=== PATIENT | female | born 1975 | race African-American/Black ===

== ENCOUNTER 2022-09-02 07:46 | Emergency (ER) | payer SELFPAY ==
[2022-09-02 08:04] LABS: BILIRUBIN,URINE NEGATIVE (NEGATIVE); COLOR,URINE YELLOW; GLUCOSE, URINE (UA) NEGATIVE (NEGATIVE); KETONES,URINE NEGATIVE (NEGATIVE); LEUKOCYTE ESTERASE ,URINE TRACE (NEGATIVE); NITRITE,URINE NEGATIVE (NEGATIVE); PH,URINE 5.5 (5-9); PROTEIN,URINE 1+ (NEGATIVE)
[2022-09-02 08:08] LABS: BACTERIA,URINE LARGE /HPF; CLARITY,URINE SLIGHTLY CLOUDY; SQUAMOUS EPITHELIAL CELL,UR 25-50 /HPF
[2022-09-02] MEDS ORDERED: NS IV 1000 ML 1,000 ML IV STA (08:09)
[2022-09-02] MEDS ORDERED: ONDANSETRON 4 MG/2 ML (SDV) Z0FRAN IVP STA (08:09)
[2022-09-02] MEDS ORDERED: KETOROLAC 15 MG/ML VIAL IVP STA (08:09)
[2022-09-02 08:15] LABS: BASOPHILS % (AUTO) 0 % (0-10); EOSINOPHILS # (AUTO) 0.1 10^3/uL (0.0-0.3); EOSINOPHILS % (AUTO) 1 % (0-10); HEMATOCRIT 36 % (35-52); HEMOGLOBIN 11.5 g/dL (11.5-16.0); LYMPHOCYTES # (AUTO) 3.1 10^3/uL (1.0-4.0); LYMPHOCYTES % (AUTO) 28 % (12-44); MEAN CORPUSCULAR HEMOGLOBIN 26 pg (25-34); MEAN CORPUSCULAR HGB CONC 32 g/dL (32-36); MEAN CORPUSCULAR VOLUME 83 fL (80-99); MEAN PLATELET VOLUME 8.6 fL (9.0-12.2); MONOCYTES # (AUTO) 0.7 10^3/uL (0.0-1.0); MONOCYTES % (AUTO) 6 % (0-12); NEUTROPHILS # (AUTO) 7.3 10^3/uL (1.8-7.8); NEUTROPHILS % (AUTO) 65 % (42-75); PLATELET COUNT 432 10^3/uL (130-400); WHITE BLOOD COUNT 11.2 10^3/uL (4.3-11.0)
[2022-09-02] MEDS ORDERED: IOHEXOL 350 MG/ML 100 ML (OMNIPAQUE 350) VIAL IV ONE (08:15)
[2022-09-02] MEDS ORDERED: NS 100 ML (IVPB) BAG IV ONE (08:15)
[2022-09-02] MEDS ORDERED: HOLD METFORMIN - RECEIVED CONTRAST 20 ML VIAL IV SCH (08:15)
--- NOTE | 2022-09-02 08:22 | ED GU-Female ---
General Chief Complaint: - Reproductive Stated Complaint: SUPRAPUBIC PAIN Source: patient History of Present Illness Date Seen by Provider: Sep 02, 2022 Time Seen by Provider: 07:52 Initial Comments 46-year-old female presenting with complaints of severe menstrual cramping pain. She states that she started her period and the pain on Saturday the . She had been having irregular menstrual cycles over the last year and thought she might be going into menopause however the last 2 months have been on time. She felt like the pain was more severe than her usual menstrual cramps and seems to be going into her back and her tailbone. She denies pain with urination. 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 She did have some relief of pain yesterday with Acetaminophen and took a nap, but then when she woke up she was having nausea and vomiting and felt the pain was worse. She denies pain or burning with urination. She has had an ablation and tubal ligation in the past. She denies other surgeries on her abdomen. She has history of rheumatoid arthritis that she takes methotrexate for and she has high blood pressure but is not following with any provider currently so she is not taking any medication for that. She has not taken anything today for pain. She has not had any vomiting today but states that she threw up 4 times yesterday. She denies any diarrhea or change in her bowels. 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 and she usually goes to [facility] for medical care but has not established with anyone since they moved here to [place]. Timing/Duration: getting worse (Over the last 3 days) Severity/Quality: severe, cramping, sharp Location: RLQ, LLQ, suprapubic Radiation: back (Low back and her tailbone) Activities at Onset: none Prior Genitourinary Problems: similar symptoms (Severe menstrual cramps and pain in the past but feels that this is worse) Modifying Factors: Worsens With Palpation Associated Symptoms: No diaphoresis, No dysuria, No fever/chills, No loss of bladder control; lower back pain; No lumps, No mass; nausea/vomiting; No nocturia, No polyuria, No swelling, No syncope, No urinary frequency Allergies and Home Medications Allergies Coded Allergies: No Known Drug Allergies (Unverified , 09/02/22) Patient Home Medication List Home Medication List Reviewed: Yes Naproxen (Naprosyn) 500 Mg Tablet, 500 MG PO BID Prescribed by: JESSE RODAS on 09/02/22908 Ondansetron (Ondansetron Odt) 4 Mg Tab.rapdis, 4 MG PO Q6H PRN for NAUSEA/VOMITING Prescribed by: JESSE BENJAMINYART on 09/02/22 09 Review of Systems Review of Systems Constitutional: No chills; dizziness; No fever EENTM: no symptoms reported Respiratory: no symptoms reported Cardiovascular: no symptoms reported Gastrointestinal: see HPI Genitourinary: see HPI Musculoskeletal: see HPI Skin: No change in color, No rash Psychiatric/Neurological: No Symptoms Reported Past [id number]-Xztiwt-Sksluo Hx Patient Social History Tobacco Use?: No Substance use?: No Alcohol Use?: Yes Alcohol Frequency: Once in a while Past Medical History Surgery/Hospitalization HX: Rheumatoid Arthritis, Uterine Ablation for heavy menstruation, Tubal Ligation, Hypertension Surgeries: Yes Tubal Ligation Respiratory: No Cardiac: Yes Hypertension Neurological: No Reproductive Disorders: Yes 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 oz. kg; BMI Method: General Appearance: WD/WN, mild distress (appears to be in pain at times during the exam and interview) HEENT: PERRL/EOMI, pharynx normal Neck: non-tender, full range of motion, supple, normal inspection Cardiovascular: normal peripheral pulses, regular rate, rhythm Respiratory: chest non-tender, lungs clear, normal breath sounds Gastrointestinal: normal bowel sounds, soft, no pulsatile mass; No distended; guarding; No rebound; tenderness (suprapubic and RLQ) Rectal: deferred Back: no CVA tenderness, no vertebral tenderness, muscle spasm (with pain to low lumbar back) Extremities: normal range of motion, non-tender, no calf tenderness, normal capillary refill Neurologic/Psychiatric: alert, oriented x 3 Skin: normal color, warm/dry Progress/Results/Core Measures Suspected Sepsis SIRS Temperature: Pulse: Respiratory Rate: Laboratory Tests 09/02/22 08:10: White Blood Count 11.2H Blood Pressure / Mean: Laboratory Tests 09/02/22 08:10: Creatinine 0.78, Platelet Count 432H, Total Bilirubin 0.4 Results/Orders Lab Results Laboratory Tests Test 09/02/22 07:50 09/02/22 08:10 Range/Units Urine Color YELLOW Urine Clarity SLIGHTLY CLOUDY Urine pH 5.5 5-9 Urine Specific [place] 1.025 H 1.016-1.022 Urine Protein 1+ H NEGATIVE Urine Glucose (UA) NEGATIVE NEGATIVE Urine Ketones NEGATIVE NEGATIVE Urine Nitrite NEGATIVE NEGATIVE Urine Bilirubin NEGATIVE NEGATIVE Urine Urobilinogen 0.2 < = 1.0 MG/DL Urine Leukocyte Esterase TRACE H NEGATIVE Urine RBC (Auto) 3+ H NEGATIVE Urine RBC 10-25 H /HPF Urine WBC 10-25 H /HPF Urine Squamous Epithelial Cells 25-50 H /HPF Urine Crystals NONE /LPF Urine Bacteria LARGE H /HPF Urine Casts NONE /LPF Urine Mucus LARGE H /LPF Urine Culture Indicated NO White Blood Count 11.2 H 4.3-11.0 10^3/uL Red Blood Count 4.37 3.80-5.11 10^6/uL Hemoglobin 11.5 11.5-16.0 g/dL Hematocrit 36 35-52 % Mean Corpuscular Volume 83 80-99 fL Mean Corpuscular Hemoglobin 26 25-34 pg Mean Corpuscular Hemoglobin Concent 32 32-36 g/dL Red Cell Distribution Width 15.8 H 10.0-14.5 % Platelet Count 432 H 130-400 10^3/uL Mean Platelet Volume 8.6 L 9.0-12.2 fL Immature Granulocyte % (Auto) 0 % Neutrophils (%) (Auto) 65 42-75 % Lymphocytes (%) (Auto) 28 12-44 % Monocytes (%) (Auto) 6 0-12 % Eosinophils (%) (Auto) 1 0-10 % Basophils (%) (Auto) 0 0-10 % Neutrophils # (Auto) 7.3 1.8-7.8 10^3/uL Lymphocytes # (Auto) 3.1 1.0-4.0 10^3/uL Monocytes # (Auto) 0.7 0.0-1.0 10^3/uL Eosinophils # (Auto) 0.1 0.0-0.3 10^3/uL Basophils # (Auto) 0.0 0.0-0.1 10^3/uL Immature Granulocyte # (Auto) 0.0 0.0-0.1 10^3/uL Sodium Level 141 135-145 MMOL/L Potassium Level 3.9 3.6-5.0 MMOL/L Chloride Level 107 98-107 MMOL/L Carbon Dioxide Level 24 21-32 MMOL/L Anion Gap 10 5-14 MMOL/L Blood Urea Nitrogen 4 L 7-18 MG/DL Creatinine 0.78 0.60-1.30 MG/DL Estimat Glomerular Filtration Rate 95 BUN/Creatinine Ratio 5 Glucose Level 110 H 70-105 MG/DL Calcium Level 9.5 8.5-10.1 MG/DL Corrected Calcium 9.4 8.5-10.1 MG/DL Total Bilirubin 0.4 0.1-1.0 MG/DL Aspartate Amino Transf (AST/SGOT) 15 5-34 U/L Alanine Aminotransferase (ALT/SGPT) 5 0-55 U/L Alkaline Phosphatase 70 40-136 U/L Total Protein 7.4 6.4-8.2 GM/DL Albumin 4.1 3.2-4.5 GM/DL Lipase 19 8-78 U/L My Orders Orders - JESSE RODAS MD Ua Culture If Indicated (09/02/22 07:52) Urine Bedside (09/02/22 07:52) Comprehensive Metabolic Panel (09/02/22 08:09) Lipase (09/02/22 08:09) Ed Iv/Invasive Line Start (09/02/22 08:09) Cbc With Automated Diff (09/02/22 08:09) Ct Abdomen/Pelvis W (09/02/22 08:09) Ns Iv 1000 Ml (Sodium Chloride 0.9%) (09/02/22 08:09) Ondansetron Injection (Zofran Injectio (09/02/22 08:09) Ketorolac Injection (Toradol Injection) (09/02/22 08:09) Iohexol Injection (Omnipaque 350 Mg/Ml 1 (09/02/22 08:15) Received Contrast (Hold Metformin- Contr (09/02/22 08:15) Ns (Ivpb) (Sodium Chloride 0.9% Ivpb Bag (09/02/22 08:15) Medications Given in ED Current Medications Medications Dose Ordered Sig/Noam Route Start Time Stop Time Status Last Admin Dose Admin Iohexol 100 ml ONCE ONCE IV 09/02/22 08:15 09/02/22 08:16 DC 09/02/22 08:31 80 ML Sodium Chloride 100 ml ONCE ONCE IV 09/02/22 08:15 09/02/22 08:16 DC 09/02/22 08:31 80 ML Vital Signs/I&O 09/02/22 09/02/22 07:50 09:13 Temp 37.2 37.2 Pulse 86 86 Resp 16 16 B/P (MAP) 169/92 (117) 169/92 Pulse Ox 100 100 O2 Delivery Room Air Room Air Capillary Refill : Progress Note #1: Progress Note Potential diagnosis of ovarian cyst, uterine fibroids, colitis, diverticulitis, pyelonephritis, cystitis, dysmenorrhea, appendicitis, kidney stone. Obtain urinalysis to evaluate for signs of infection and bedside urine . Establish peripheral IV access and send labs for complete blood count, comprehensive metabolic profile, lipase. CT scan of the abdomen and pelvis with IV contrast to evaluate for intra-abdominal and pelvic pathology that might be contributing to her complaints of severe pain. Normal saline 1 L IV fluid bolus for hydration, ketorolac 15 mg IV for pain and inflammation, ondansetron 4 mg IV for nausea and vomiting. Progress Note #2: Time: 08:36 Progress Note Urinalysis showed elevated specific gravity 1.025. She did have 3+ blood and 25-50 epithelial cells but did not have leukocyte esterase, nitrates or indications of UTI. Her complete blood count is 11.2 for her white blood cells and 11.3 for the hemoglobin. Platelets of 432. On her comprehensive metabolic profile she did not have any acute significant electrolyte abnormality. Her lipase was normal at 19. Awaiting results of CT scan of the abdomen pelvis with IV contrast. On my personal review and interpretation of the CT scan of the abdomen and pelvis with IV contrast I did not appreciate any acute bowel obstruction, mass, appendicitis, fluid collection to indicate a reason for her pain and symptoms. Progress Note #3: Time: 08:54 Progress Note I have reviewed the radiologist report of the CT scan of the abdomen and pelvis with IV contrast. They did not appreciate any acute pathology to account for her low back and pelvic pain. Will review with the patient the CT scan findings. She did report that her pain was down to 5 out of 10 when I checked with her initially and reviewed her basic labs. We will discuss option of ordering an outpatient ultrasound to evaluate ovaries and uterus in further detail. Can continue NSAIDs for her complaints of pelvic and low back pain. Offer Zofran for nausea and vomiting. Encouraged follow-up with gynecology for irregular menstrual cycle and increased painful bleeding. Diagnostic Imaging Diagonstic Imaging: CT Plain Films/CT/US/NM/MRI: abdomen, pelvis Comments NAME: [facility] REC#: [id number] PT STATUS: REG ER : 1975 PHYSICIAN: JESSE RODAS MD ADMIT DATE: 09/02/22/ER FS Draft Date of Exam:09/02/22 CT ABDOMEN/PELVIS W EXAMINATION: CT abdomen and pelvis with intravenous contrast. TECHNIQUE: Multiple contiguous axial images were obtained through the abdomen and pelvis after the uneventful administration of intravenous contrast. All CT scans use one or more of the following dose optimizing techniques: automated exposure control, MA and/or KvP adjustment based on patient size and exam type or iterative reconstruction. HISTORY: Abdominal pain. Back pain. Nausea and vomiting. COMPARISON: None available. FINDINGS: The heart is unremarkable. The included lung bases are clear. The liver, spleen, pancreas, adrenal glands, and kidneys have a normal appearance. There is no pathologically enlarged mesenteric or retroperitoneal adenopathy. The bowel loops are nondilated. The appendix is visualized in the right lower quadrant and has a normal appearance. There is no free air. No acute osseous abnormalities. Ureters and bladder are grossly normal. A small amount of physiologic free fluid is seen in the pelvis. There is no free air, loculated collection, or adenopathy in the pelvis. IMPRESSION: 1. No acute abnormalities in the abdomen and pelvis. No bowel obstruction, free fluid, or free air. 2. Small amount of physiologic free fluid in the pelvis. Dictated on workstation # [id number] Dict: 09/02/22 0848 Trans: 09/02/22 0851 [facility] [id number] Interpreted by: CANDICE CRUZ DO Electronically signed by: Reviewed: Reviewed by Me Departure Impression Primary Impression: Acute pelvic pain, female Additional Impression: Menorrhagia with irregular cycle Disposition: 01 HOME, SELF-CARE Condition: Stable Departure-Patient Inst. Decision time for Depature: 09:07 Referrals: MIGUEL FRANZ,LOCAL PHYSICIAN (PCP) [place] Care Physician [facility] [place] [facility] [place] Instructions: Absent or irregular periods, Painful periods, Pelvic Pain ED Add. Discharge Instructions: Continue to stay well-hydrated and drink plenty of fluids. You may continue to take acetaminophen for pain as well as you can take naproxen or Aleve. 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 You could follow-up and establish care with [facility] for local drier take off tender, Dr. FRANZ. To get an outpatient ultrasound you may call [facility] at [phone] after 7 AM tomorrow morning about trying to schedule the ultrasound with their wellfield technician. Let them know that you have an outpatient order from the emergency department here in [place]. Alternatively you could call scheduling for radiology in [place] through [employer] after 7 am tomorrow morning and let them know you have an outpatient ultrasound order to schedule for Saturday. Call [phone] if you want to try and schedule to have ultrasound done in [place] at [address]. If your symptoms are continuing to worsen or you have more concerns you could return to the ER or get in with provider at [facility] or [facility] of your choice. All discharge instructions reviewed with patient and/or family. Voiced understanding. Scripts Ondansetron (Ondansetron Odt) 4 Mg Tab.rapdis 4 MG PO Q6H PRN for NAUSEA/VOMITING for 2 Days, #8 TAB 0 Refills Prov: JESSE RODAS MD 09/02/22 Naproxen (Naprosyn) 500 Mg Tablet 500 MG PO BID for Pelvic Pain for 5 Days, #10 TAB 0 Refills Prov: JESSE RODAS MD 09/02/22 JESSE RODAS MD Sep 02, 2022 08:22
[2022-09-02 08:35] LABS: ALBUMIN 4.1 GM/DL (3.2-4.5); BILIRUBIN,TOTAL 0.4 MG/DL (0.1-1.0); CALCIUM 9.5 MG/DL (8.5-10.1); CREATININE SERUM 0.78 MG/DL (0.60-1.30); POTASSIUM 3.9 MMOL/L (3.6-5.0); TOTAL PROTEIN 7.4 GM/DL (6.4-8.2)
--- NOTE | 2022-09-02 08:51 | Diagnostic Imaging Report ---
EXAMINATION: CT abdomen and pelvis with intravenous contrast. TECHNIQUE: Multiple contiguous axial images were obtained through the abdomen and pelvis after the uneventful administration of intravenous contrast. All CT scans use one or more of the following dose optimizing techniques: automated exposure control, MA and/or KvP adjustment based on patient size and exam type or iterative reconstruction. HISTORY: Abdominal pain. Back pain. Nausea and vomiting. COMPARISON: None available. FINDINGS: The heart is unremarkable. The included lung bases are clear. The liver, spleen, pancreas, adrenal glands, and kidneys have a normal appearance. There is no pathologically enlarged mesenteric or retroperitoneal adenopathy. The bowel loops are nondilated. The appendix is visualized in the right lower quadrant and has a normal appearance. There is no free air. No acute osseous abnormalities. Ureters and bladder are grossly normal. A small amount of physiologic free fluid is seen in the pelvis. There is no free air, loculated collection, or adenopathy in the pelvis. IMPRESSION: 1. No acute abnormalities in the abdomen and pelvis. No bowel obstruction, free fluid, or free air. 2. Small amount of physiologic free fluid in the pelvis. Dictated by: Dictated on workstation # [id number]
[2022-09-02] MEDS ORDERED: NAPR-1071 PO (09:09)
[2022-09-02] MEDS ORDERED: ONDA4TAB11 PO (09:09)
[2022-09-02 09:13] VITALS: BP 169/92
== END 2022-09-02 09:14 | disposition home or self-care (01) ==
LOC: ER FS 07:48
DX: R10.2 Pelvic and perineal pain (principal); N92.0 Excessive and frequent menstruation with regular cycle; R11.2 Nausea with vomiting, unspecified; M54.50 Low back pain, unspecified
CPT/HCPCS: 36415; 74177; 80053; 81000; 83690; 84703; 85025; Q9967